=== PATIENT | female | born 1950 | race Caucasian/White ===

== ENCOUNTER → 2019-10-18 | Outpatient (CLI) | payer MEDICARE ==
[~2019-10-18] MED LIST: AMIT50TA3 PO; ASPI-555 PO; ATOR10 PO; CALC-724 PO; CETI-109 PO; CHOL100046 PO; CLOTRIMAZOLE TP; CROM40SP12 NS; CYAN50008 PO; FURO20TA4 PO; GLUCOSE TABS PO; INSU100I21 SQ; LACT10SO PO; LACT1TAB26 PO; LOSA50TA64 PO; METO25 PO; MULT-1203 PO; SALBUTAMOL IH; TRAM50TA4 PO
== END | disposition home or self-care (01) ==
LOC: RAH 12:50
PROVIDERS: ATTEND Internal Medicine Cardiovascular Disease
DX: J18.9 Pneumonia, unspecified organism (principal)
CPT/HCPCS: 71046

== ENCOUNTER 2019-12-01 17:36 | Observation (INO) | payer MEDICARE, SELFPAY ==
[~2019-12-01] VITALS: Ht 154.9 cm; Wt 83.6 kg
[~2019-12-01 17:36] MED LIST changes: -ASPI-555 PO; +ASPI-556 PO; +AUD IH; +CALC-1158 PO; -CALC-724 PO; -CETI-109 PO; +CETI-89 PO; +LEVO500T89 PO
[2019-12-01 17:57] LABS: BASOPHILS % (AUTO) 0.9 % (0.0-5.0); EOSINOPHILS % (AUTO) 4.7 % (0.0-8.0); HEMATOCRIT 33.4 % (36-48); LYMPHOCYTES % (AUTO) 29.1 % (21.0-51.0); MEAN CORPUSCULAR HEMOGLOBIN 34.5 pg (27.0-33.0); MEAN CORPUSCULAR HGB CONC 34.1 g/dL (32.0-36.0); MEAN CORPUSCULAR VOLUME 101.2 fL (79-99); MONOCYTES % (AUTO) 9.2 % (3.0-13.0); NEUTROPHILS % (AUTO) 55.7 % (40.0-77.0); PLATELET COUNT (AUTO) 97 K/uL (130-400); RED CELL DISTRIBUTION WIDTH 12.7 % (11.0-15.5); WHITE BLOOD COUNT (AUTO) 5.6 K/uL (4.8-10.8)
[2019-12-01 18:08] LABS: INR 1.45 (0.85-1.15); PARTIAL THROMBOPLASTIN TIME 31.5 SEC (26.3-35.5); PROTHROMBIN TIME 15.4 SEC (9.6-11.6)
[2019-12-01 18:13] LABS: MAGNESIUM 1.2 mg/dL (1.80-2.40)
[2019-12-01] MEDS ORDERED: MAGNESIUM OXIDE 400 MG TABLET PO ONE (18:25)
[2019-12-01 18:30] LABS: B-TYPE NATRIURETIC PEPTIDE 317 pg/mL (0-100)
[2019-12-01 18:51] LABS: BILIRUBIN,URINE Small (NEGATIVE); COLOR,URINE Dark Yellow (YELLOW); GLUCOSE, URINE (UA) Negative (NEGATIVE); KETONES,URINE Trace mg/dL (NEGATIVE); LEUKOCYTE ESTERASE ,URINE Moderate (NEGATIVE); NITRATE,URINE Negative (NEGATIVE); OCCULT BLOOD,URINE Small (NEGATIVE); PROTEIN,URINE Negative (NEGATIVE)
[2019-12-01 18:55] LABS: APPEARANCE,URINE SLIGHTLY CLOUDY (CLEAR)
[2019-12-01 18:59] LABS: BACTERIA,URINE Rare /HPF (None Seen); RBC,URINE 0-1 /HPF (0-1); SQUAMOUS EPITHELIAL CELL,UR Few /HPF (0-2)
[2019-12-01 19:00] LABS: MUCUS,URINE Rare LPF (None Seen)
[2019-12-01] MEDS ORDERED: CEFTRIAXONE SODIUM 1 GM ONE (19:30)
[2019-12-01] MEDS ORDERED: SODIUM CHLORIDE 0.9% 100 ML IV ONE (19:31)
[2019-12-01] MEDS ORDERED: ONDANSETRON HCL 4 MG/2 ML VIAL IV PRN (19:45)
[2019-12-01] MEDS ORDERED: HYDRALAZINE HCL 20 MG/ML VIAL IV PRN (19:45)
[2019-12-01] MEDS ORDERED: MORPHINE SULFATE 2 MG/ML 1ML SYG IV PRN (19:45)
[2019-12-01] MEDS: CEFTRIAXONE SODIUM 1 GM IV SCH (19:45)
[2019-12-01] MEDS ORDERED: LACTULOSE 20 GM/30 ML UDCUP PO PRN (19:45)
[2019-12-01] MEDS ORDERED: NITROGLYCERIN 0.4 MG SL TAB SL PRN (19:45)
[2019-12-01] MEDS ORDERED: ALBUTEROL SULFATE 0.083% 2.5 MG/3 ML INH IH PRN (20:15)
[2019-12-01] MEDS ORDERED: MAGNESIUM 2GM PREMIX 50ML 50 ML IV PRN (20:15)
[2019-12-01] MEDS: FAMOTIDINE 20MG TAB 20 MG TAB PO SCH (21:00)
[2019-12-01] MEDS: INSULIN HUMULIN R 100 UNIT/ML 3ML SQ SCH (21:00)
[2019-12-01] MEDS ORDERED: FAMOTIDINE/PF 20 MG/2 ML VIAL IV ONE (21:30)
[2019-12-02] VITALS (9 sets, daily range): BP systolic 141–162; BP diastolic 60–143
[2019-12-02 05:49] LABS: BASOPHILS % (AUTO) 0.7 % (0.0-5.0); EOSINOPHILS % (AUTO) 5.7 % (0.0-8.0); HEMATOCRIT 32.7 % (36-48); LYMPHOCYTES % (AUTO) 34.6 % (21.0-51.0); MEAN CORPUSCULAR HEMOGLOBIN 34.2 pg (27.0-33.0); MEAN CORPUSCULAR HGB CONC 33.6 g/dL (32.0-36.0); MEAN CORPUSCULAR VOLUME 101.6 fL (79-99); MONOCYTES % (AUTO) 8.5 % (3.0-13.0); NEUTROPHILS % (AUTO) 50.3 % (40.0-77.0); PLATELET COUNT (AUTO) 71 K/uL (130-400); RED BLOOD CELL COUNT(AUTO) 3.22 MIL/uL (4.00-5.50); RED CELL DISTRIBUTION WIDTH 12.9 % (11.0-15.5); WHITE BLOOD COUNT (AUTO) 4.6 K/uL (4.8-10.8)
[2019-12-02 05:56] LABS: MAGNESIUM 1.2 mg/dL (1.80-2.40); POTASSIUM 3.3 mmol/L (3.5-5.1)
[2019-12-02] MEDS ORDERED: MAGNESIUM 2GM PREMIX 50ML 50 ML IV ONE (06:47)
[2019-12-02] MEDS: INSULIN HUMULIN R 100 UNIT/ML 3ML SQ SCH ×4 (07:30→22:31)
[2019-12-02] MEDS ORDERED: VANCOMYCIN 1GM+NS 250ML 250 ML IV PRN (08:15)
[2019-12-02] MEDS: FAMOTIDINE 20MG TAB 20 MG TAB PO SCH ×2 (09:00→19:59)
[2019-12-02] MEDS ORDERED: BUPIVACAINE/PF 0.25% 30ML VIAL IJ ONE (10:52)
[2019-12-02] MEDS ORDERED: MIDAZOLAM HCL 1 MG/ML 2ML VIAL ONE ×2 (10:52→11:31)
[2019-12-02] MEDS ORDERED: MEPERIDINE-PF 25 MG/ML SYG ONE ×2 (10:52→11:31)
[2019-12-02] MEDS ORDERED: IODIXANOL 320 MG/ML 100 ML VIAL ONE (10:53)
[2019-12-02] MEDS ORDERED: VANCOMYCIN 1GM+NS 250ML 500 ML IV ONE (10:53)
[2019-12-02] MEDS ORDERED: LIDOCAINE HCL 1% MDV 50ML VIAL ONE (10:53)
[2019-12-02] MEDS ORDERED: ACETAMINOPHEN-CODEINE 300/30MG TAB PO PRN (12:45)
--- NOTE | 2019-12-02 13:01 | NUR ---
ARRIVAL TO FLOOR AAOX3 DENIES CP DENIES SOB DENIES NV. NOTED LEFT UPPER CHEST DRESSING IN PLACE LEFT ARM SLING IN PLACE. SITTING UPRIGHT IN BED, FAMILY IS AT BEDSIDE, CALL LIGHT WITHIN REACH.
[2019-12-02] MEDS ORDERED: VENL-53 PO (13:07)
[2019-12-02] MEDS ORDERED: TRAMADOL HCL 50 MG TABLET PO PRN (13:45)
[2019-12-02] MEDS: CEFTRIAXONE SODIUM 1 GM IV SCH (19:54)
[2019-12-03 04:11] VITALS: BP 154/70
[2019-12-03 05:16] LABS: BASOPHILS % (AUTO) 0.5 % (0.0-5.0); EOSINOPHILS % (AUTO) 3.7 % (0.0-8.0); HEMATOCRIT 34.3 % (36-48); LYMPHOCYTES % (AUTO) 24.9 % (21.0-51.0); MEAN CORPUSCULAR HEMOGLOBIN 34.7 pg (27.0-33.0); MEAN CORPUSCULAR HGB CONC 33.8 g/dL (32.0-36.0); MEAN CORPUSCULAR VOLUME 102.7 fL (79-99); MONOCYTES % (AUTO) 6.9 % (3.0-13.0); NEUTROPHILS % (AUTO) 63.6 % (40.0-77.0); PLATELET COUNT (AUTO) 53 K/uL (130-400); RED BLOOD CELL COUNT(AUTO) 3.34 MIL/uL (4.00-5.50); RED CELL DISTRIBUTION WIDTH 12.7 % (11.0-15.5); WHITE BLOOD COUNT (AUTO) 5.6 K/uL (4.8-10.8)
[2019-12-03 05:50] LABS: ALBUMIN 2.1 g/dL (3.5-5.0); BILIRUBIN,TOTAL 1.5 mg/dL (0.2-1.0); CREATININE 0.8 mg/dL (0.5-1.5); POTASSIUM 3.7 mmol/L (3.5-5.1); TOTAL PROTEIN, SERUM 6.4 g/dL (6.0-8.3)
[2019-12-03] MEDS: INSULIN HUMULIN R 100 UNIT/ML 3ML SQ SCH ×2 (06:55→12:18)
[2019-12-03 07:40] VITALS: BP 160/67
[2019-12-03] MEDS: FAMOTIDINE 20MG TAB 20 MG TAB PO SCH (09:00)
[2019-12-03 11:41] VITALS: BP 114/64
[2019-12-03] MEDS ORDERED: LEVO500T2 PO (12:32)
--- NOTE | 2019-12-03 13:11 | NUR ---
DISCHARGE DISCHARGE INSTRUCTIONS GIVEN TO PATIENT, VERBALIZED UNDERSTANDING. PATIENT GIVEN PRESCRIPTION FOR LEVAQUIN. IV'S REMOVED. TELEPAK DISCONTINUED.
== END 2019-12-03 13:16 | disposition home or self-care (01) ==
LOC: EDH 17:36 → EDHIP 19:37 → 2DH 12-02 13:08
PROVIDERS: ADMIT Hospitalist; ATTEND Hospitalist
DX: I49.5 Sick sinus syndrome (principal); R06.03 Acute respiratory distress; N39.0 Urinary tract infection, site not specified; E83.42 Hypomagnesemia; I25.10 Atherosclerotic heart disease of native coronary artery without angina pectoris; E11.9 Type 2 diabetes mellitus without complications; E78.5 Hyperlipidemia, unspecified; I10 Essential (primary) hypertension; I44.2 Atrioventricular block, complete; K74.69 Other cirrhosis of liver; Z95.0 Presence of cardiac pacemaker; Z96.652 Presence of left artificial knee joint; Z86.73 Personal history of transient ischemic attack (TIA), and cerebral infarction without residual deficits
CPT/HCPCS: 33215; 36415 ×3; 71045 ×2; 80048; 80053; 81001; 82140; 82550; 82948 ×5; 83605; 83735 ×2; 83880; 84484; 85025 ×3; 85610; 85730; 87040; 87088; 87804 ×2; 93005; 94664; 96372; 96374; 99285; G0378 ×6; J0696 ×2; J1815 ×3; J2175 ×2; J2250 ×2; J3370; J3475; J3490 ×3; Q9967; 99156; 99157